=== PATIENT | female | born 1980 | race American Indian/Alaskan Native ===

== ENCOUNTER 2018-07-08 12:02 | Emergency (ER) | payer OTHER, BC ==
[2018-07-08 12:02] VITALS: BMI 32.9
[2018-07-08 12:48] VITALS: RESP 19
[2018-07-08] MEDS ORDERED: Naproxen 550 mg Tab PO STA (13:33)
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
--- NOTE | 2018-07-08 14:11 | RAD ---
Date of service: 07/08/2018 HISTORY: pain COMPARISON: No prior. FINDINGS: BONES: Alignment maintained. No fracture. DISC SPACES: Normal. SOFT TISSUES: Normal. OTHER FINDINGS: None. IMPRESSION: Normal radiographs of the thoracic spine.
--- NOTE | 2018-07-08 14:12 | RAD ---
Date of service: 07/08/2018 HISTORY: pain COMPARISON: No prior. TECHNIQUE: Chest PA and lateral FINDINGS: LUNGS: No active pulmonary disease. PLEURA: No significant pleural effusion identified. No pneumothorax apparent. CARDIOVASCULAR: No aortic atherosclerotic calcification present. Normal cardiac size. No pulmonary vascular congestion. OSSEOUS STRUCTURES: No significant abnormalities. VISUALIZED UPPER ABDOMEN: Normal. OTHER FINDINGS: None. IMPRESSION: No active disease.
--- NOTE | 2018-07-08 14:12 | RAD ---
Date of service: 07/08/2018 PROCEDURE: Cervical Spine Radiographs. HISTORY: Pain. COMPARISON: None available. FINDINGS: BONES: Vertebral bodies maintained in height. There straightening of the normal lordotic curvature indicating possible muscular spasm. Normal alignment is maintained. The examination is limited and no open mouth view is submitted. The odontoid process is suboptimally evaluated. DISC SPACES: Normal. SOFT TISSUES: Normal. No prevertebral soft tissue swelling. OTHER FINDINGS: None. IMPRESSION: Possible muscular spasm. Otherwise unremarkable limited examination.
[2018-07-08 19:30] VITALS: BP 130/65; PULSE 70; TEMP 98; O2SAT 99
== END 2018-07-08 14:49 | disposition home or self-care (01) ==
LOC: ED 12:02
DX: S16.1XXA Strain of muscle, fascia and tendon at neck level, initial encounter (principal); S29.012A Strain of muscle and tendon of back wall of thorax, initial encounter; S20.219A Contusion of unspecified front wall of thorax, initial encounter; V49.49XA Driver injured in collision with other motor vehicles in traffic accident, initial encounter; Y92.410 Unspecified street and highway as the place of occurrence of the external cause